=== PATIENT | male | born 1995 | race Hispanic/Latino ===

== ENCOUNTER 2025-06-02 21:01 | Emergency (ER) | payer BC ==
[~2025-06-02] VITALS: Ht 180.3 cm; Wt 81.6 kg
[2025-06-02 21:20] VITALS: PULSE 66; RESP 16; TEMP 97.6
[2025-06-02 21:43] LABS: LEUKOCYTE ESTERASE ,URINE NEGATIVE (NEGATIVE); PROTEIN,URINE DIPSTICK NEGATIVE (NEGATIVE); URINE UROBILINOGEN 0.2 mg/dL (0.2 - 1)
[2025-06-02 21:44] LABS: WBC,URINE (MAN) 0-5 /HPF (0-5)
[2025-06-02 21:48] LABS: BASOPHILS % 0.4 % (0.0-1.0); EOSINOPHILS % 2.2 % (0.0-6.0); LYMPHOCYTES % 35.2 % (18.0-39.1); MONOCYTES % 6.4 % (4.4-11.3); NEUTROPHILS % 55.7 % (38.7-80.0); RED CELL DISTRIBUTION WIDTH 12.7 % (11.7-14.4)
[2025-06-02] MEDS: KETOROLAC TROMETHAMINE 30 MG/ML VIAL IV STA (21:58)
[2025-06-02 22:11] LABS: EST GLOMERULAR FILTRATION RATE 72.0 ML/MIN (>=60)
[2025-06-02] MEDS ORDERED: NAPROSYN500 MG PO (23:55)
[2025-06-02] MEDS ORDERED: CYCLOBENZAPRINE5 MG PO (23:55)
[2025-06-03 00:10] VITALS: BP 118/85; PULSE 70; RESP 18; O2SAT 98
== END 2025-06-03 00:11 | disposition home or self-care (01) ==
LOC: ER 21:32
DX: R10.9 Unspecified abdominal pain (principal); S29.012A Strain of muscle and tendon of back wall of thorax, initial encounter
CPT/HCPCS: 36415; 74176; 80048; 81001; 85025; 99284; J1885